=== PATIENT | male | born 1955 | race Caucasian/White ===

== ENCOUNTER 2019-01-10 15:59 | Observation (INO) | payer OTHER ==
[~2019-01-10] VITALS: Ht 182.9 cm; Wt 86.2 kg
[2019-01-10 16:47] LABS: BASOPHILS ABSOLUTE AUTO 0.04 K/mm3 (0.00-0.23); BASOPHILS PERCENT AUTO 0 % (0-2); EOSINOPHILS ABSOLUTE AUTO 0.06 K/mm3 (0.00-0.68); EOSINOPHILS PERCENT AUTO 1 % (0-6); Hematocrit 40.3 % (37.0-53.0); Hemoglobin 13.5 g/dL (13.5-17.5); IMMATURE GRAN ABSOLUTE AUTO 0.03 K/mm3 (0.00-0.10); IMMATURE GRAN PERCENT AUTO 0 % (0-1); LYMPHOCYTES ABSOLUTE AUTO 1.26 K/mm3 (0.84-5.20); LYMPHOCYTES PERCENT AUTO 14 % (21-46); MONOCYTES ABSOLUTE AUTO 1.05 K/mm3 (0.16-1.47); MONOCYTES PERCENT AUTO 12 % (4-13); Mean Corpuscular HGB 31.7 pg (26.0-34.0); Mean Corpuscular HGB Conc 33.5 g/dL (31.5-36.5); Mean Corpuscular Volume 95 fL (80-100); Mean Platelet Volume 10.2 fL (9.1-12.4); NEUTROPHILS ABSOLUTE AUTO 6.69 K/mm3 (1.96-9.15); NEUTROPHILS PERCENT AUTO 73 % (41-73); Platelet Count 196 K/mm3 (150-400); RDW Coefficient Variation 11.9 % (11.7-14.2); RDW Standard Deviation 41.1 fL (35.1-46.3); Red Blood Cell Count 4.26 M/mm3 (4.30-5.90); White Blood Cell Count 9.13 K/mm3 (4.00-11.30)
[2019-01-10 17:02] LABS: International Normalized Ratio 1.03; Prothrombin Time Results 10.9 Sec (9.7-11.5)
[2019-01-10 17:13] LABS: Alanine Aminotransfer (ALT/SGP 20 U/L (12-78); Albumin, Blood 4.2 g/dL (3.4-5.0); Albumin/Globulin Ratio 1.3 (0.8-1.8); Alk Phos 56 U/L (50-136); Anion Gap 5 mmol/L (6-16); Aspartate Aminotrans (AST/SGOT 18 U/L (12-37); Bilirubin, Total 0.8 mg/dL (0.1-1.0); Blood Urea Nitrogen 13 mg/dL (8-24); Bun/Creatinine Ratio 15.6 (12.0-20.0); CO2, Blood 26 mmol/L (21-32); Calcium, Blood 8.8 mg/dL (8.5-10.1); Chloride, Blood 105 mmol/L (98-108); Creatinine, Blood 0.84 mg/dL (0.60-1.20); Globulin, Blood 3.3 g/dL (2.2-4.0); Glomerular Filtration Rate >60 (60-); Glucose, Blood 103 mg/dL (70-99); Potassium, Blood 3.8 mmol/L (3.5-5.5); Sodium, Blood 136 mmol/L (136-145); Total Protein, Blood 7.5 g/dL (6.4-8.2)
[2019-01-11 03:28] LABS: BASOPHILS ABSOLUTE AUTO 0.03 K/mm3 (0.00-0.23); BASOPHILS PERCENT AUTO 0 % (0-2); EOSINOPHILS ABSOLUTE AUTO 0.08 K/mm3 (0.00-0.68); EOSINOPHILS PERCENT AUTO 1 % (0-6); Hematocrit 36.4 % (37.0-53.0); Hemoglobin 12.5 g/dL (13.5-17.5); IMMATURE GRAN ABSOLUTE AUTO 0.03 K/mm3 (0.00-0.10); IMMATURE GRAN PERCENT AUTO 0 % (0-1); LYMPHOCYTES ABSOLUTE AUTO 1.35 K/mm3 (0.84-5.20); LYMPHOCYTES PERCENT AUTO 17 % (21-46); MONOCYTES ABSOLUTE AUTO 1.26 K/mm3 (0.16-1.47); MONOCYTES PERCENT AUTO 16 % (4-13); Mean Corpuscular HGB 32.3 pg (26.0-34.0); Mean Corpuscular HGB Conc 34.3 g/dL (31.5-36.5); Mean Corpuscular Volume 94 fL (80-100); NEUTROPHILS ABSOLUTE AUTO 5.34 K/mm3 (1.96-9.15); NEUTROPHILS PERCENT AUTO 66 % (41-73); Platelet Count 153 K/mm3 (150-400); RDW Coefficient Variation 11.8 % (11.7-14.2); RDW Standard Deviation 40.5 fL (35.1-46.3); Red Blood Cell Count 3.87 M/mm3 (4.30-5.90); White Blood Cell Count 8.09 K/mm3 (4.00-11.30)
[2019-01-11 03:46] LABS: Anion Gap 7 mmol/L (6-16); Blood Urea Nitrogen 15 mg/dL (8-24); Bun/Creatinine Ratio 18.7 (12.0-20.0); CO2, Blood 26 mmol/L (21-32); Calcium, Blood 8.5 mg/dL (8.5-10.1); Chloride, Blood 107 mmol/L (98-108); Glomerular Filtration Rate >60 (60-); Glucose, Blood 113 mg/dL (70-99); Sodium, Blood 140 mmol/L (136-145)
--- NOTE | 2019-01-11 05:24 | NUR ---
ASSUMED PT CARE/END OF SHIFT SUMMARY PT ARRIVED ON UNIT FROM [facility] AT 2102. PT ADMITTED S/P DVT TO RLE WITH [address]IAL [address] TO RIGHT POPLITEAL SITE WITH ORDERS FOR HEPARIN INFUSION VIA PHARMACY CONSULT; SITE WAS NOTED TO BE SOFT, NON-TENDER WITH NO HEMATOMA NOTED. RIGHT CALF REGION WAS RED, SWOLLEN, TENDER, AND WARM TO THE TOUCH. IVC FILTER PLACED BY DR. ELKINS TO PT'S INFERIOR VENA CAVA WITH DVT EXTENDING FROM ILIAC TO COMMON FEMORAL, POPLITEAL VEINS, AND CALF VEINS. HEPARIN GTT IS CURRENTLY AT 16UNITS/KG/HR. PT IS ALERT AND ORIENTED X4; ABLE TO MAKE NEEDS KNOWN AND HAS BEEN PLEASANT/COOPERATIVE WITH CARES. PT STATES HE DOES DRINK ALCOHOL; ABOUT 5-10 DRINKS DAILY. DRINKS CAN VARY FROM BEER TO TEQUILA TO VODKA DEPENDING ON WHAT SEASON IT IS. CIWA SCORES HAVE BEEN 0-4. PT HAS NOTED TO BE HYPERTENSIVE WITH SBP 200'S; 10MG OF LABETOLOL IV GIVEN PER ZOILA SESAY ORDERS AND WAS EFFECTIVE; SBP HAS BEEN 120-130'S FOR THE REST OF THE SHIFT. PT HAS BEEN IN NSR WITH OCCASIONAL PAC'S; HR 70-80'S. DISTAL PULSES ARE FAINT, BUT PALPABLE TO RIGHT PEDAL/TIBIAL PULSES. STRONG TO LEFT LE. BIOX HAS BEEN GREATER THAN 90% WITH PT ON RA. C/O 3/10 PAIN AT BEGINNING OF SHIFT; MEDICATED WITH 50MG OF TRAMADOL PER ORDERS; EFFECTIVE. PT DENIES ANY SOB AND/OR ANXIETY. PT HAS HAD MINIMAL URINE OUTPUT; TEA COLORED URINE. PT STATES HE GENERALLY FEELS THE URGE TO PEE, BUT ALSO FEELS LIKE HE CAN'T EMPTY HIS BLADDER. STATES HE DOESN'T HAVE A PCP; THEREFORE, DOESN'T KNOW IF HE HAS ANY PROSTATE ISSUES. CALL LIGHT LEFT WITHIN REACH; PT IS ABLE TO MAKE HIS NEEDS KNOWN. WILL CONTINUE TO MONITOR UNTIL REPORT IS HANDED OFF TO DAY SHIFT RN.
--- NOTE | 2019-01-11 08:30 | NUR ---
ASSESSMENT- PT AWAKE, ALERT, COOPERATIVE, TALKATIVE. REVIEWED PLAN OF CARE, PRECAUTIONS, STATES UNDERSTANDING. FEET WARM, SENSATION INTACT. RIGHT POSTERIOR POPLITEAL SHEATH IN PLACE, DI WITH HEPARIN GTT INFUSING AT 16 UNITS/KG/HR. NO S/S BLEEDING. C/O RIGHT THIGH SWELLING, STATES HAS NOT IMPROVED BUT FEELS RIGHT LOWER LEG SWELLING IS BETTER. RIGHT FOOT SWELLING 1+, PULSES DOPPLE RIGHT. RIGHT AC SL DI. ABLE TO REPOSITION SELF IN BED. DNEIES SOB NOW, LUNGS CLEAR. NSR. SBP STABLE. STATES DOES DRINK 6 DRINKS A DAY, NONE SINCE MONDAY NIGHT. DENIES ANY HALLUCINATIONS OR ANXIETY. ABLE TO USE CALL LIGHT
--- NOTE | 2019-01-11 09:35 | NUR ---
UPDATE TO DR. ELKINS-[facility] WILL SEE PATIENT PER HIS PROGRESS NOTES, START ANTICOAGULATION AND THEN OK TO D/C HEPARIN AND PULL SHEATH AND PT MAY BE DISCHARGED AFTER. [facility] CAN CALL IF QUESITONS. UPDATE TO DR. GRAY, [facility] WILL BE HERE TO EVALUATE PT
--- NOTE | 2019-01-11 10:32 | NUR ---
WANTS TO GET UP OUT OF BED, EXPLAINED PLAN OF CARE. AGREEABLE TO STAY ON BEDREST. VSS
--- NOTE | 2019-01-11 12:25 | NUR ---
DR. TREVINO HERE-ASSESSED PT, REVIEWED PLAN. PT TO START XARELTO, THEN TO D/C HEPARIN GTT AND PULL SHEATH. BEDREST FOR 4 HOURS AFTER SHEATH PULL. MAY DISCHARGE AFTERWARD. [facility] REP HERE TO DISCUSS INSURANCE WITH PT AND ANSWER QUESTIONS. SOCIAL SERVICE-PT TO FOLLOU UP WITH URGENT CARE AT [facility] UNTIL PRIMARY ESTABLISHED
--- NOTE | 2019-01-11 13:57 | NUR ---
XARELTO GIVEN, THEN HEPARIN OFF. PT EATING, NO COMPLAINTS. POPLITEAL SITE DI
--- NOTE | 2019-01-11 15:18 | NUR ---
PT AWAKE, ALERT, NO COMPLAINTS. HEPARIN OFF FOR ONE HOUR. POPLITEAL SHEATH REMOVED AND PRESSURE HELD WITHOUT ANY S/S PROBLEMS. POSITIONED WITH LEG SLIGHTLY BENT ON BLANKET, INSTRUCTED ON CATH SITE PRECAUTIONS, BLEEDING PRECAUTIONS. CMS CHECKS INTACT TO FEET
--- NOTE | 2019-01-11 15:55 | NUR ---
DR. TREVINO- REVIEWED DISCHARGE INSTRUCTIONS WITH DR. TREVINO. PT TO F/U IN 3 DAYS WITH CARE PROVIDER (CAN GO TO URGENT CARE AT [facility] UNTIL PRIMARY CARE PROVIDER GIVEN) AND CAN DISHCARGE AFTER 3 HOURS IF SITE DI. PT DENIES COMPLAINTS, HAVE REVIEWED MEDICATIONS WITH PT
[2019-01-11] MEDS ORDERED: NIFE30ER PO (17:47)
[2019-01-11] MEDS ORDERED: XARELTO15 MG PO ×2 (17:49→17:50)
--- NOTE | 2019-01-11 18:15 | NUR ---
POPLITEAL SITE DI, VSS. NO S/S BLEEDING. REVIEWED ALL DISCHARGE INSTRUCTIONS WITH PT, STATES UNDERSTANDING OF NEED TO MAKE FOLLOW UP APPOINTMENTS, GO TO URGENT CARE ON MONDAY FOR PRIMARY VISIT. REVIEWED MEDICATIONS AND IMPORTANCE OF XARELTO, BLEEDING PRECAUTIONS, NEED TO ABSTAIN FROM ETOH. UP IN ROOM WITHOUT PROBLEMS. PLANS FOR DISCHARGE. RX CALLED TO [facility] FOR XARELTO AND HAS NEW OPEN CARD FOR RX.
--- NOTE | 2019-01-11 18:34 | NUR ---
PT DISCHARGED WITHOUT PROBLEMS. DR. TREVINO HAD CLEARED PT TO DRIVE-HAS HAD NO NARCOTICS OR PAIN RX.
== END 2019-01-11 18:30 | disposition home or self-care (01) ==
LOC: ER 15:59 → ICUW 18:48 → ER 21:14 → ICUW 01-11 00:40
PROVIDERS: Nurse Practitioner Acute Care; Physician Assistant; ADMIT Radiology Diagnostic Radiology
DX: I82.421 Acute embolism and thrombosis of right iliac vein (principal); I82.412 Acute embolism and thrombosis of left femoral vein; I82.221 Chronic embolism and thrombosis of inferior vena cava; I82.4Z1 Acute embolism and thrombosis of unspecified deep veins of right distal lower extremity; F10.20 Alcohol dependence, uncomplicated; I10 Essential (primary) hypertension; R91.1 Solitary pulmonary nodule; Z86.718 Personal history of other venous thrombosis and embolism; Z79.899 Other long term (current) drug therapy
CPT/HCPCS: 36415; 37191; 37213; 71260; 76937; 80048; 80053; 83735; 85025; 85610; 85730; 93971; 99152; 99153; 99285-25; C1724; C1769; C1880; C1887; C1894; G0378; J1644; J2250; J3010; J7030; Q9967

== ENCOUNTER 2019-03-19 09:06 | Day surgery (SDC) | payer OTHER ==
[~2019-03-19] VITALS: Ht 182.9 cm; Wt 86.0 kg
[~2019-03-19 09:06] MED LIST: NIFE30ER PO; XARELTO15 MG PO
[2019-03-19] MEDS ORDERED: Prinivil10 MG PO (09:28)
--- NOTE | 2019-03-19 15:40 | NUR ---
PT RIGHT IJ VEIN ACCESS SITE APPEARS TO BE WNL. TRANSPARENT DRESSING REMAINS INTACT, DIME SIZE BLOOD OOZING NOTED UNDERNEATH TEGADERM. SOFT NON TENDER WITH NO ACTIVE BLEEDING NOTED. PT VERBALIZED UNDERSTANDING OF D/C INSTRUCTIONS. GETS DRESSED WITH NO NEEDED ASSISTANCE. PT CALLS HIS SISTER FOR A RIDE HOME. IV REMOVED FROM LAC WITH CATH INTACT, PRESSURE DRESSING APPLIED. PT ENCOURAGED TO CONTINUE PREVIOUSLY PRESCRIBED MEDICATIONS. PAPERWORK PROVIDED TO PT IN FOLDER. PT DENIES NEED FOR W/C RIDE OUT TO VEHICLE. NADN AT TIME OF DISPO. ENCOURAGED TO FOLLOW UP WITH DR ELKINS FOR ANY QUESTIONS/CONCERNS.
== END 2019-03-19 16:00 | disposition home or self-care (01) ==
LOC: MHTC 09:06
DX: I82.491 Acute embolism and thrombosis of other specified deep vein of right lower extremity (principal); I10 Essential (primary) hypertension; F10.10 Alcohol abuse, uncomplicated; Z79.01 Long term (current) use of anticoagulants; Z79.899 Other long term (current) drug therapy
CPT/HCPCS: 37193; 99152; C1769; C1773; C1880; J1644; J2250; J3010; J7030; J7040; Q9967

== ENCOUNTER → 2019-12-17 | Outpatient (CLI) | payer OTHER ==
[~2019-12-17] MED LIST changes: +Prinivil10 MG PO
[2019-12-17 14:42] LABS: Stool Occult Bld Immuno 1 Negative (NEGATIVE)
== END | disposition home or self-care (01) ==
LOC: LAB 07:53 → LAB SHORT 07:53 → OLS 07:53 → LAB FUT 12-08 14:35
PROVIDERS: Nurse Practitioner Family
DX: D64.9 Anemia, unspecified (principal)
CPT/HCPCS: G0328

== ENCOUNTER 2020-03-09 08:54 | Day surgery (SDC) | payer OTHER ==
[~2020-03-09] VITALS: Ht 182.9 cm; Wt 80.1 kg
[~2020-03-09 08:54] MED LIST changes: +MULVITA PO; +XARELTO20 MG PO
--- NOTE | 2020-03-09 10:49 | NUR ---
03/09/20 1049 Alisha Zarco History, Chart, Medications and Allergies reviewed before start of procedure. PATIENT CONFIRMS NPO STATUS AND AGREES WITH SCHEDULED PROCEDURE. MONITOR INTACT WITH CONTINUOUS PULSE OXIMETRY AND INTERMITTENT BP. O2 VIA N/C INTACT THROUGHOUT SEDATION/PROCEDURE. 3-LEAD EKG REVIEWED WITH PHYSICIAN PRIOR TO START OF PROCEDURE. PATIENT DETERMINED TO BE ASA APPROPRIATE FOR PROPOFOL SEDATION PRIOR TO START OF PROCEDURE BY DR. GRAY. Bite Block Placed. HURRICAINE SPRAY TO OROPHARYX.
--- NOTE | 2020-03-09 12:00 | NUR ---
Patient up to Ambulate independently. Gait steady. Discharge instructions reviewed with patient. Patient verbalizes understanding. Copy given to patient to take home. Discharged via wheelchair to private car for ride home WITH BROTHER IN [place] PAT
== END 2020-03-09 23:21 | disposition home or self-care (01) ==
LOC: ORD 08:54 → ORSCMMR 08:54 → ORD 10:00
PROVIDERS: Internal Medicine Gastroenterology
PROC: 0DB98ZX Excision of Duodenum, Via Natural or Artificial Opening Endoscopic, Diagnostic (ICD-10-PCS; principal; 2020-03-09 10:00)
PROC: 0DB58ZX Excision of Esophagus, Via Natural or Artificial Opening Endoscopic, Diagnostic (ICD-10-PCS; principal; 2020-03-09 10:00)
PROC: 0DBN8ZX Excision of Sigmoid Colon, Via Natural or Artificial Opening Endoscopic, Diagnostic (ICD-10-PCS; principal; 2020-03-09 10:00)
PROC: 0DB68ZX Excision of Stomach, Via Natural or Artificial Opening Endoscopic, Diagnostic (ICD-10-PCS; principal; 2020-03-09 10:00)
PROC: 0DB48ZX Excision of Esophagogastric Junction, Via Natural or Artificial Opening Endoscopic, Diagnostic (ICD-10-PCS; principal; 2020-03-09 10:00)
DX: D50.0 Iron deficiency anemia secondary to blood loss (chronic) (principal); K29.80 Duodenitis without bleeding; K21.9 Gastro-esophageal reflux disease without esophagitis; K63.5 Polyp of colon; K57.30 Diverticulosis of large intestine without perforation or abscess without bleeding; Z86.718 Personal history of other venous thrombosis and embolism; Z79.01 Long term (current) use of anticoagulants; I10 Essential (primary) hypertension; Z79.899 Other long term (current) drug therapy
CPT/HCPCS: 88305; 88342; J2250; J2704; J7120

== ENCOUNTER → 2020-05-19 | Outpatient (CLI) | payer OTHER | LOC: LAB SHORT 12:45 → PLD 12:45 | DX: C44.619 Basal cell carcinoma of skin of left upper limb, including shoulder (principal); C44.612 Basal cell carcinoma of skin of right upper limb, including shoulder | CPT/HCPCS: 88305 ==

== ENCOUNTER → 2021-02-23 | Outpatient (CLI) | payer OTHER | END | disposition home or self-care (01) | LOC: LAB SHORT 11:07 → LAB 11:07 | DX: L57.0 Actinic keratosis (principal) | CPT/HCPCS: 88305 ==

== ENCOUNTER → 2021-09-21 | Outpatient (CLI) | payer OTHER | END | disposition home or self-care (01) | LOC: LAB SHORT 11:16 → PLD 11:16 | DX: C44.42 Squamous cell carcinoma of skin of scalp and neck (principal); D04.5 Carcinoma in situ of skin of trunk; D22.5 Melanocytic nevi of trunk | CPT/HCPCS: 88305 ==

== ENCOUNTER → 2022-06-21 | Outpatient (CLI) | payer OTHER | END | disposition home or self-care (01) | LOC: LAB SHORT 08:22 → PLD 08:22 | DX: C44.42 Squamous cell carcinoma of skin of scalp and neck (principal) | CPT/HCPCS: 88305 ==

== ENCOUNTER → 2024-05-01 | Outpatient (CLI) | payer MEDICARE, OTHER | LOC: LAB SHORT 08:54 → LAB 08:54 | DX: R35.0 Frequency of micturition (principal) | CPT/HCPCS: 87086 ==

== ENCOUNTER → 2024-10-29 | Outpatient (CLI) | payer OTHER ==
[2024-10-29 10:51] LABS: Stool Occult Bld Immuno 1 Negative (NEGATIVE)
== END | disposition home or self-care (01) ==
LOC: LAB SHORT 08:35 → LAB 08:35
PROVIDERS: Nurse Practitioner Family
DX: R71.8 Other abnormality of red blood cells (principal)
CPT/HCPCS: 82274

== ENCOUNTER 2025-03-04 01:39 | Day surgery (SDC) | payer OTHER ==
[2025-03-04] MEDS ORDERED: Lidocaine HCl 4% Cream 5 GM ONE (13:52)
== END 2025-03-04 23:20 | disposition home or self-care (01) ==
LOC: WOUND 01:39
DX: I87.312 Chronic venous hypertension (idiopathic) with ulcer of left lower extremity (principal); L97.822 Non-pressure chronic ulcer of other part of left lower leg with fat layer exposed; I10 Essential (primary) hypertension; Z87.891 Personal history of nicotine dependence
CPT/HCPCS: A9270; G0463

== ENCOUNTER 2025-03-11 01:36 | Day surgery (SDC) | payer OTHER ==
[2025-03-11] MEDS ORDERED: Lidocaine HCl 4% Cream 5 GM ONE (13:03)
== END 2025-03-11 22:00 | disposition home or self-care (01) ==
LOC: WOUND 01:36
DX: I87.312 Chronic venous hypertension (idiopathic) with ulcer of left lower extremity (principal); L97.822 Non-pressure chronic ulcer of other part of left lower leg with fat layer exposed
CPT/HCPCS: A9270

== ENCOUNTER 2025-03-18 08:04 | Day surgery (SDC) | payer OTHER ==
[2025-03-18] MEDS ORDERED: Lidocaine HCl 4% Cream 5 GM ONE (15:36)
== END 2025-03-18 23:40 | disposition home or self-care (01) ==
LOC: WOUND 08:04
DX: I87.312 Chronic venous hypertension (idiopathic) with ulcer of left lower extremity (principal); L97.822 Non-pressure chronic ulcer of other part of left lower leg with fat layer exposed; I87.2 Venous insufficiency (chronic) (peripheral)
CPT/HCPCS: A9270

== ENCOUNTER 2025-03-25 02:37 | Day surgery (SDC) | payer OTHER ==
[2025-03-25] MEDS ORDERED: Lidocaine HCl 4% Cream 5 GM ONE (15:18)
== END 2025-03-25 23:40 | disposition home or self-care (01) ==
LOC: WOUND 02:37
DX: I87.312 Chronic venous hypertension (idiopathic) with ulcer of left lower extremity (principal); L97.821 Non-pressure chronic ulcer of other part of left lower leg limited to breakdown of skin; I87.2 Venous insufficiency (chronic) (peripheral)
CPT/HCPCS: A9270; G0463

== ENCOUNTER 2025-04-01 00:50 | Day surgery (SDC) | payer OTHER ==
[2025-04-01] MEDS ORDERED: Lidocaine HCl 4% Cream 5 GM ONE (15:20)
== END 2025-04-01 23:49 | disposition home or self-care (01) ==
LOC: WOUND 00:50
DX: I87.312 Chronic venous hypertension (idiopathic) with ulcer of left lower extremity (principal); L97.822 Non-pressure chronic ulcer of other part of left lower leg with fat layer exposed; M79.662 Pain in left lower leg
CPT/HCPCS: A6196; A9270; G0463